=== PATIENT | male | born 1995 | race Hispanic/Latino ===

== ENCOUNTER 2024-01-10 07:40 | Emergency (ER) | payer SELFPAY ==
[2024-01-10] MEDS ORDERED: Acetaminophen 325 MG TAB ONE (08:12)
[2024-01-10 08:37] LABS: Hematocrit 28.5 % (42.0-52.0); Hemoglobin 8.7 g/dL (14.0-18.0); Mean Corpuscular HGB CONC 30.5 g/dL (32.0-36.0); Mean Corpuscular Hemoglobin 24.5 pg (27.0-31.0); Mean Corpuscular Volume 80.3 fL (78.0-98.0); Mean Platelet Volume 8.8 fL (7.4-10.4); Platelet Count 313 10x3/uL (130-400); RBC Distribution Width 18.8 % (11.5-14.5); Red Blood Cell (RBC) Count 3.55 mill/uL (4.70-6.10)
[2024-01-10 08:56] LABS: ALT (SGPT) 31 U/L (8-55); AST (SGOT) 52 U/L (5-34); Albumin 1.9 g/dL (3.5-5.0); Alkaline Phosphatase 363 U/L (40-110); Anion Gap 12 mmol/L (10-20); BUN (Urea Nitrogen) 9 mg/dL (8.9-20.6); Bilirubin, Total 0.3 mg/dL (0.2-1.2); Calc. Creatinine Clearance 0 mL/min (70-130); Calcium 8.5 mg/dL (7.8-10.44); Carbon Dioxide 21 mmol/L (22-29); Chloride 99 mmol/L (98-107); Estimated GFR 129; Globulin 7.9 g/dL (2.4-3.5); Glucose 86 mg/dL (70-105); Lipase 17 U/L (8-78); Potassium 3.6 mmol/L (3.5-5.1); Protein, Total 9.8 g/dL (6.0-8.3); Sodium 128 mmol/L (136-145)
[2024-01-10 09:19] LABS: Band 22 % (5-11); Eosinophils 1 % (0-10); Lymphocytes 29 % (21-51); Monocytes 11 % (0-10); Neutrophil 35 % (42-75); Platelet Adequacy Comment Platelets Normal; RBC Morphology Within Normal Limits; Reactive Lymphocytes 1 % (0-10)
== END 2024-01-10 12:12 | disposition home or self-care (01) ==
LOC: ERS 07:40
DX: K62.89 Other specified diseases of anus and rectum (principal); D64.9 Anemia, unspecified; K59.00 Constipation, unspecified; E87.1 Hypo-osmolality and hyponatremia
CPT/HCPCS: 36415; 74176; 80053; 83690; 85025

== ENCOUNTER 2024-08-07 07:50 | Inpatient (IN) | payer MEDICAID, SELFPAY ==
[2024-08-07] MEDS ORDERED: Ketorolac Tromethamine 30 MG (1 mL) VIAL ONE (08:15)
[2024-08-07 08:43] LABS: Hematocrit 23.2 % (42.0-52.0); Hemoglobin 6.9 g/dL (14.0-18.0); Mean Corpuscular HGB CONC 29.7 g/dL (32.0-36.0); Mean Corpuscular Hemoglobin 22.7 pg (27.0-31.0); Mean Corpuscular Volume 76.3 fL (78.0-98.0); Mean Platelet Volume 8.4 fL (7.4-10.4); Platelet Count 309 10x3/uL (130-400); RBC Distribution Width 18.6 % (11.5-14.5); Red Blood Cell (RBC) Count 3.04 mill/uL (4.70-6.10)
[2024-08-07 09:00] LABS: ALT (SGPT) 27 U/L (8-55); AST (SGOT) 54 U/L (5-34); Albumin 1.6 g/dL (3.5-5.0); Alkaline Phosphatase 890 U/L (40-110); Anion Gap 6 mmol/L (10-20); BUN (Urea Nitrogen) 8 mg/dL (8.9-20.6); Bilirubin, Total 0.4 mg/dL (0.2-1.2); Calc. Creatinine Clearance 0 mL/min (70-130); Calcium 7.5 mg/dL (7.8-10.44); Carbon Dioxide 22 mmol/L (22-29); Chloride 99 mmol/L (98-107); Estimated GFR 134; Globulin 7.5 g/dL (2.4-3.5); Glucose 81 mg/dL (70-105); Lipase 12 U/L (8-78); Potassium 3.6 mmol/L (3.5-5.1); Protein, Total 9.1 g/dL (6.0-8.3); Sodium 123 mmol/L (136-145)
[2024-08-07 09:08] LABS: Bacteria/HPF None Seen HPF (None Seen); Bilirubin Negative (Negative); Blood, Urine Negative (Negative); CAUTI Indications for Culture Pelvic or flank pain; Clarity Clear (Clear); Glucose, Urine (Dipstick) Normal (Negative); Ketone, Urine Negative (Negative); Leukocyte 25 Leu/uL (Negative); Nitrite Negative (Negative); Protein, Urine (Dipstick) 50 mg/dL (Neg-Trace); RBC/HPF 0-3 HPF (0-3); Specific Gravity, Urine 1.027 (1.002-1.036); Squamous Epithelial 0-3 HPF (0-3); pH, Urine 6.5 (5.0-9.0)
[2024-08-07 09:09] LABS: Urine Culture Reflex No No
[2024-08-07 09:45] LABS: #Basophils Less than 0.03 10x3/uL (0.0-0.2); #Eosinophils Less than 0.03 10x3/uL (0.0-0.7); %Basophils 0.2 % (0.0-1.0); %Eosinophils 0.1 % (0.0-10.0); %Lymphocytes 50.2 % (21.0-51.0); %Monocytes 7.9 % (0.0-10.0); Band 5 % (5-11); Hypochromia SLIGHT = 6-15 cells (100X) (0-5/hpf); Lymphocytes 57 % (21-51); Microcytosis SLIGHT = 6-15 cells (100X) (0-5/hpf); Monocytes 5 % (0-10); Neutrophil 33 % (42-75); Plasma Cells 0 % (0-0); Platelet Adequacy Comment Appears Adequate; Polychromasia SLIGHT = 2-3 cells (100X) (0-2/hpf); Smudge Cells SLIGHT; Total Cell Count 100
[2024-08-07] MEDS ORDERED: Ondansetron ODT 4 MG TAB PO PRN (11:53)
[2024-08-07 12:43] VITALS: BMI 17.3
[2024-08-07 12:43] LABS: Amphetamine Not Detected (NotDetected); Barbiturates Screen Not Detected (NotDetected); Benzodiazepine Screen Not Detected (NotDetected); Cocaine Metabolite Screen Not Detected (NotDetected); Methadone Not Detected (NotDetected); Methamphetamine Not Detected (NotDetected); Opiate Screen Not Detected (NotDetected); Oxycodone Screen Not Detected (NotDetected); Phencyclidine (PCP) Not Detected (NotDetected); THC/Cannabinoid Screen Not Detected (NotDetected); Tricyclic Screen Not Detected (NotDetected)
[2024-08-07 13:00] LABS: Cardiac Risk 3.5 (Less than 4.5)
[2024-08-07 13:48] LABS: Hemoglobin A1c 4.7 % (4.0-6.0)
[2024-08-07 14:53] LABS: Ferritin 870.23 ng/mL (22-322)
[2024-08-07 15:26] LABS: HIV (1/2) Antibody/Antigen Reflxed Confirmation (NonReactive)
[2024-08-07] MEDS: Ketorolac Tromethamine 30 MG (1 mL) VIAL IVP PRN (15:26)
[2024-08-07] MEDS ORDERED: Iopamidol-370 76% 500 ML MDV (1 ML CHARGE) ONE (15:41)
[2024-08-07 16:03] LABS: Hematocrit 22.4 % (42.0-52.0); Hemoglobin 6.9 g/dL (14.0-18.0)
[2024-08-07 16:28] LABS: Anion Gap 6 mmol/L (10-20); BUN (Urea Nitrogen) 8 mg/dL (8.9-20.6); Calc. Creatinine Clearance 140 mL/min (70-130); Calcium 7.1 mg/dL (7.8-10.44); Carbon Dioxide 19 mmol/L (22-29); Chloride 104 mmol/L (98-107); Estimated GFR 139; Glucose 104 mg/dL (70-105); Potassium 3.2 mmol/L (3.5-5.1); Sodium 126 mmol/L (136-145)
[2024-08-07 16:48] LABS: HBsAg Index 0.23 S/CO (0-0.99); HIV 1/2 INDEX 523.53 S/CO (<1.00); Hep A IgM AB NONREACTIVE (NonReactive); Hep A IgM S/CO 0.18 S/CO (0-0.79); Hep B Core IgM Index 0.09 S/CO (0-0.79); Hep B Surf Ag NONREACTIVE S/CO (NonReactive); Hep C IgG Ab NONREACTIVE S/CO (NonReactive); Hepatitis B Core IgM Abs NONREACTIVE S/CO (NonReactive); Thyroid Stimulating Hormone 1.8711 uIU/mL (0.35-4.94)
[2024-08-07] MEDS: GoLYTELY 4,000 ml Bottle PO SCH (17:51)
[2024-08-07] MEDS: Potassium Chloride 20 MEQ in Premix 1 BAG IVPB SCH (17:53)
[2024-08-07 23:53] LABS: Syphilis Antibody Index 23.76 S/CO (<1.00 Non-Reactive)
[2024-08-07 23:59] LABS: Syphilis Antibody REACTIVE (Nonreactive); Syphilis Titer 1:32 Titer (Nonreactive)
[2024-08-08 05:42] LABS: Hematocrit 20.8 % (42.0-52.0); Hemoglobin 6.4 g/dL (14.0-18.0); Mean Corpuscular HGB CONC 30.8 g/dL (32.0-36.0); Mean Corpuscular Hemoglobin 23.5 pg (27.0-31.0); Mean Corpuscular Volume 76.5 fL (78.0-98.0); Mean Platelet Volume 8.5 fL (7.4-10.4); Platelet Count 216 10x3/uL (130-400); RBC Distribution Width 18.7 % (11.5-14.5); Red Blood Cell (RBC) Count 2.72 mill/uL (4.70-6.10)
[2024-08-08 05:56] LABS: Calc. Creatinine Clearance 149 mL/min (70-130); Estimated GFR 142; Immunoglob - G (Total IgG) 3823 mg/dL (540-1822); Immunoglob - M (Total IgM) 297 mg/dL (22-240)
[2024-08-08 05:58] LABS: ALT (SGPT) 24 U/L (8-55); AST (SGOT) 47 U/L (5-34); Albumin 1.3 g/dL (3.5-5.0); Alkaline Phosphatase 824 U/L (40-110); Anion Gap 7 mmol/L (10-20); BUN (Urea Nitrogen) 6 mg/dL (8.9-20.6); Bilirubin, Total 0.4 mg/dL (0.2-1.2); Calcium 7.1 mg/dL (7.8-10.44); Carbon Dioxide 22 mmol/L (22-29); Chloride 105 mmol/L (98-107); Globulin 5.9 g/dL (2.4-3.5); Glucose 81 mg/dL (70-105); Potassium 3.6 mmol/L (3.5-5.1); Protein, Total 7.2 g/dL (6.0-8.3); Sodium 130 mmol/L (136-145)
[2024-08-08 06:13] LABS: Band 21 % (5-11); Hypochromia SLIGHT = 6-15 cells HPF (0-5); Large Platelets 7.4 % (0-5); Lymphocytes 6 % (21-51); Microcytosis SLIGHT = 6-15 cells HPF (0-5); Monocytes 12 % (0-10); Neutrophil 60 % (42-75); Platelet Adequacy Comment Platelets Normal; Polychromasia SLIGHT = 2-3 cells HPF (0-2); Reactive Lymphocytes 2 % (0-10)
[2024-08-08] MEDS ORDERED: fentaNYL 50 mcg/mL 1 mL Vial ONE (07:51)
[2024-08-08] MEDS ORDERED: Lidocaine 1% PF 5 ML VIAL ONE (08:31)
[2024-08-08] MEDS ORDERED: PROPOFOL 20 ML ONE ×3 (08:31→08:56)
[2024-08-08 08:58] VITALS: BMI 17.3
[2024-08-08 11:35] LABS: Calc. Creatinine Clearance 146 mL/min (70-130); Estimated GFR 141
[2024-08-08 11:36] LABS: Anion Gap 7 mmol/L (10-20); BUN (Urea Nitrogen) 5 mg/dL (8.9-20.6); Calcium 7.2 mg/dL (7.8-10.44); Carbon Dioxide 20 mmol/L (22-29); Chloride 106 mmol/L (98-107); Glucose 99 mg/dL (70-105); Potassium 3.3 mmol/L (3.5-5.1); Sodium 130 mmol/L (136-145)
[2024-08-08] MEDS: Fluconazole In NaCl,Iso-Osm 400 MG in Premix 1 BAG IVPB SCH (11:54)
[2024-08-08] MEDS: Bicillin LA 2.4 MILL.UNITS/4 ML SYRINGE IM SCH (11:57)
[2024-08-08] MEDS: Potassium Chloride 20 MEQ in Premix 1 BAG IVPB SCH (12:21)
[2024-08-08] MEDS: Potassium Chloride 20 MEQ TAB PO SCH (12:22)
[2024-08-08 18:36] LABS: Hematocrit 32.7 % (42.0-52.0); Hemoglobin 10.5 g/dL (14.0-18.0)
[2024-08-08] MEDS: Acetaminophen 325 MG TAB PO PRN (20:25)
[2024-08-08] MEDS: Simethicone Chewable 80 MG TAB PO SCH (22:17)
[2024-08-09 01:23] LABS: Chlam.trachomatis by PCR,Urine Not Detected (NotDetected); GC N.gonorrhoeae PCR,UrineVOID Not Detected (NotDetected)
[2024-08-09 04:57] LABS: Hematocrit 36.7 % (42.0-52.0); Hemoglobin 11.7 g/dL (14.0-18.0); Mean Corpuscular HGB CONC 31.9 g/dL (32.0-36.0); Mean Corpuscular Hemoglobin 25.2 pg (27.0-31.0); Mean Corpuscular Volume 79.1 fL (78.0-98.0); Mean Platelet Volume 8.5 fL (7.4-10.4); Platelet Count 241 10x3/uL (130-400); Red Blood Cell (RBC) Count 4.64 mill/uL (4.70-6.10)
[2024-08-09 05:06] LABS: ALT (SGPT) 24 U/L (8-55); AST (SGOT) 40 U/L (5-34); Albumin 1.4 g/dL (3.5-5.0); Alkaline Phosphatase 754 U/L (40-110); Anion Gap 5 mmol/L (10-20); BUN (Urea Nitrogen) 4 mg/dL (8.9-20.6); Bilirubin, Total 0.7 mg/dL (0.2-1.2); Calc. Creatinine Clearance 143 mL/min (70-130); Calcium 7.6 mg/dL (7.8-10.44); Carbon Dioxide 24 mmol/L (22-29); Chloride 101 mmol/L (98-107); Estimated GFR 140; Globulin 6.5 g/dL (2.4-3.5); Glucose 85 mg/dL (70-105); Potassium 4.3 mmol/L (3.5-5.1); Protein, Total 7.9 g/dL (6.0-8.3); Sodium 126 mmol/L (136-145)
[2024-08-09 06:17] LABS: Eosinophils 1 % (0-10); Lymphocytes 69 % (21-51); Monocytes 3 % (0-10); Neutrophil 21 % (42-75); Platelet Adequacy Comment Platelets Normal; Polychromasia SLIGHT = 2-3 cells HPF (0-2); Reactive Lymphocytes 6 % (0-10); Smudge Cells 2.6 %
[2024-08-09] MEDS: Fluconazole In NaCl,Iso-Osm 200 MG in Premix 1 BAG IVPB SCH (08:38)
[2024-08-09 11:49] LABS: ANA Symphony (Qualitative) Equivocal: See Note (Negative); ANA Symphony (Quantitative) 0.9 Ratio (< 0.7 Negative); EliA Vaculitis New Method **** NEW METHOD ****; dsDNA IgG Antibody 3.5 IU/mL (<10 Negative)
[2024-08-09] MEDS: Ketorolac Tromethamine 30 MG (1 mL) VIAL IVP SCH (15:29)
[2024-08-09 17:12] LABS: %CD4 (Helper/Inducer) 3.5 % (30.8-58.5); Absolute CD4 63 /uL (359-1519); Lymphocytes/Gated Cell Count 1.8 x10E3/uL (0.7-3.1); Total Lymphocyte 40 % (Not Estab.); WBC Total Count 4.6 x10E3/uL (3.4-10.8)
[2024-08-09] MEDS: FLU (Fluarix Triv) TS24-25(6MOS UP)/PF 45 MCG/0.5 ML Syringe IM ONE (22:06)
[2024-08-09] MEDS: Ibuprofen 600 MG TAB PO PRN (22:30)
[2024-08-09 23:36] LABS: Adenovirus F 40-41 Not Detected (Not Detected); Astrovirus Not Detected (Not Detected); C. difficile toxin A+B Not Detected (Not Detected); Campylobacter by PCR DETECTED (Not Detected); Cryptosporidium Not Detected (Not Detected); Cyclospora cayetanensis Not Detected (Not Detected); Entamoeba histolytica Not Detected (Not Detected); Enteroaggregative E. coli Not Detected (Not Detected); Enteropathogenic E. coli Not Detected (Not Detected); Enterotoxigenic E. coli Not Detected (Not Detected); Giardia lamblia Not Detected (Not Detected); Norovirus GI-GII Not Detected (Not Detected); Plesiomonas shigelloides Not Detected (Not Detected); Rotavirus A Not Detected (Not Detected); Salmonella Not Detected (Not Detected); Sapovirus Not Detected (Not Detected); Shiga-toxin-producing E coli Not Detected (Not Detected); Shigella/Enteroinvasive E coli DETECTED (Not Detected); Vibrio Not Detected (Not Detected); Vibrio cholerae Not Detected (Not Detected); Yersinia enterocolitica Not Detected (Not Detected)
[2024-08-10 04:47] LABS: Hematocrit 34.8 % (42.0-52.0); Hemoglobin 10.9 g/dL (14.0-18.0); Mean Corpuscular HGB CONC 31.3 g/dL (32.0-36.0); Mean Corpuscular Hemoglobin 24.9 pg (27.0-31.0); Mean Corpuscular Volume 79.6 fL (78.0-98.0); Mean Platelet Volume 8.9 fL (7.4-10.4); Platelet Count 198 10x3/uL (130-400); Red Blood Cell (RBC) Count 4.37 mill/uL (4.70-6.10)
[2024-08-10 05:30] LABS: ALT (SGPT) 57 U/L (8-55); AST (SGOT) 94 U/L (5-34); Albumin 1.4 g/dL (3.5-5.0); Alkaline Phosphatase 1274 U/L (40-110); Anion Gap 7 mmol/L (10-20); BUN (Urea Nitrogen) 7 mg/dL (8.9-20.6); Bilirubin, Total 0.6 mg/dL (0.2-1.2); Calc. Creatinine Clearance 130 mL/min (70-130); Calcium 7.6 mg/dL (7.8-10.44); Carbon Dioxide 24 mmol/L (22-29); Chloride 99 mmol/L (98-107); Estimated GFR 136; Globulin 6.6 g/dL (2.4-3.5); Glucose 87 mg/dL (70-105); Potassium 3.8 mmol/L (3.5-5.1); Sodium 126 mmol/L (136-145)
[2024-08-10 05:49] LABS: Band 8 % (5-11); Large Platelets 0.8 % (0-5); Lymphocytes 43 % (21-51); Monocytes 7 % (0-10); Neutrophil 29 % (42-75); Platelet Adequacy Comment Platelets Normal; Polychromasia SLIGHT = 2-3 cells HPF (0-2); Reactive Lymphocytes 13 % (0-10)
[2024-08-10] MEDS: Azithromycin 250 MG TAB PO SCH (09:30)
[2024-08-10] MEDS: Meropenem 1 GM in Sodium Chloride 0.9% 100 ML IVPB SCH ×2 (09:30→18:25)
[2024-08-10] MEDS: Fluconazole 100 MG TAB PO SCH (09:30)
[2024-08-10] MEDS: Sulfameth/Trimethoprim DS 800-160mg TAB PO SCH (09:30)
[2024-08-10 10:13] LABS: HIV 1 Antibody Multi-Spot Reactive (Non Reactive); HIV 2 Antibody Multi-Spot Indeterminate (Non Reactive); HIV Multi-spot Interp HIV-1 Positive (.)
[2024-08-10] MEDS: Emtricitabine/Tenofovir 200-300 MG TAB PO SCH (11:14)
[2024-08-10] MEDS: Raltegravir Potassium 400 MG TAB PO SCH ×2 (11:14→20:30)
[2024-08-11 05:00] LABS: ALT (SGPT) 60 U/L (8-55); AST (SGOT) 84 U/L (5-34); Albumin 1.4 g/dL (3.5-5.0); Alkaline Phosphatase 1131 U/L (40-110); Anion Gap 8 mmol/L (10-20); BUN (Urea Nitrogen) 9 mg/dL (8.9-20.6); Bilirubin, Total 0.4 mg/dL (0.2-1.2); Calc. Creatinine Clearance 140 mL/min (70-130); Calcium 7.7 mg/dL (7.8-10.44); Carbon Dioxide 21 mmol/L (22-29); Chloride 108 mmol/L (98-107); Estimated GFR 139; Globulin 6.5 g/dL (2.4-3.5); Glucose 77 mg/dL (70-105); Potassium 4.5 mmol/L (3.5-5.1); Protein, Total 7.9 g/dL (6.0-8.3); Sodium 132 mmol/L (136-145)
[2024-08-11 05:18] LABS: Hematocrit 34.9 % (42.0-52.0); Hemoglobin 10.8 g/dL (14.0-18.0); Mean Corpuscular HGB CONC 30.9 g/dL (32.0-36.0); Mean Corpuscular Hemoglobin 25.1 pg (27.0-31.0); Mean Corpuscular Volume 81.2 fL (78.0-98.0); Mean Platelet Volume 8.6 fL (7.4-10.4); Platelet Count 178 10x3/uL (130-400); RBC Distribution Width 18.5 % (11.5-14.5)
[2024-08-11 06:05] LABS: Anisocytosis SLIGHT = 6-15 cells HPF (0-5); Band 10 % (5-11); Burr Cells SLIGHT = 2-5 cells HPF (0-1); Large Platelets 2.2 % (0-5); Lymphocytes 7 % (21-51); Macrocytosis SLIGHT = 6-15 cells HPF (0-5); Metamyelocyte 3 % (0-0); Monocytes 8 % (0-10); Neutrophil 72 % (42-75); Platelet Adequacy Comment Platelets Normal; Polychromasia MODERATE = 3-4 cells HPF (0-2); Smudge Cells 83.1 %
[2024-08-11] MEDS: Emtricitabine/Tenofovir 200-300 MG TAB PO SCH (09:22)
[2024-08-12 06:05] LABS: Hematocrit 34.9 % (42.0-52.0); Hemoglobin 10.9 g/dL (14.0-18.0); Mean Corpuscular HGB CONC 31.2 g/dL (32.0-36.0); Mean Corpuscular Hemoglobin 25.3 pg (27.0-31.0); Mean Platelet Volume 8.6 fL (7.4-10.4); Platelet Count 203 10x3/uL (130-400); RBC Distribution Width 18.5 % (11.5-14.5); Red Blood Cell (RBC) Count 4.31 mill/uL (4.70-6.10)
[2024-08-12 06:25] LABS: ALT (SGPT) 74 U/L (8-55); AST (SGOT) 96 U/L (5-34); Albumin 1.5 g/dL (3.5-5.0); Alkaline Phosphatase 1335 U/L (40-110); Anion Gap 9 mmol/L (10-20); BUN (Urea Nitrogen) 7 mg/dL (8.9-20.6); Bilirubin, Total 0.3 mg/dL (0.2-1.2); Calc. Creatinine Clearance 123 mL/min (70-130); Calcium 7.8 mg/dL (7.8-10.44); Carbon Dioxide 22 mmol/L (22-29); Chloride 103 mmol/L (98-107); Estimated GFR 134; Globulin 6.9 g/dL (2.4-3.5); Glucose 85 mg/dL (70-105); Potassium 4.5 mmol/L (3.5-5.1); Protein, Total 8.4 g/dL (6.0-8.3); Sodium 129 mmol/L (136-145)
[2024-08-12 06:39] LABS: Large Platelets 2.6 % (0-5); Lymphocytes 69 % (21-51); Monocytes 4 % (0-10); Neutrophil 19 % (42-75); Platelet Adequacy Comment Platelets Normal; Polychromasia SLIGHT = 2-3 cells HPF (0-2); Reactive Lymphocytes 8 % (0-10); Smudge Cells 3.4 %
[2024-08-12] MEDS: Sodium Chloride 0.9% 1,000 ML IV SCH (10:40)
[2024-08-13 06:04] LABS: Hematocrit 36.7 % (42.0-52.0); Hemoglobin 11.3 g/dL (14.0-18.0); Mean Corpuscular HGB CONC 30.8 g/dL (32.0-36.0); Mean Corpuscular Hemoglobin 25.2 pg (27.0-31.0); Mean Corpuscular Volume 81.7 fL (78.0-98.0); Mean Platelet Volume 8.9 fL (7.4-10.4); Platelet Count 235 10x3/uL (130-400); RBC Distribution Width 18.8 % (11.5-14.5); Red Blood Cell (RBC) Count 4.49 mill/uL (4.70-6.10)
[2024-08-13 06:18] LABS: ALT (SGPT) 89 U/L (8-55); AST (SGOT) 110 U/L (5-34); Albumin 1.7 g/dL (3.5-5.0); Alkaline Phosphatase 1381 U/L (40-110); Anion Gap 8 mmol/L (10-20); BUN (Urea Nitrogen) 9 mg/dL (8.9-20.6); Bilirubin, Total 0.3 mg/dL (0.2-1.2); Calc. Creatinine Clearance 125 mL/min (70-130); Calcium 8.3 mg/dL (7.8-10.44); Carbon Dioxide 21 mmol/L (22-29); Chloride 106 mmol/L (98-107); Estimated GFR 134; Globulin 7.4 g/dL (2.4-3.5); Glucose 80 mg/dL (70-105); Potassium 4.9 mmol/L (3.5-5.1); Protein, Total 9.1 g/dL (6.0-8.3); Sodium 130 mmol/L (136-145)
[2024-08-13 08:00] LABS: Anisocytosis SLIGHT = 6-15 cells HPF (0-5); Large Platelets 12.8 % (0-5); Lymphocytes 26 % (21-51); Monocytes 15 % (0-10); Neutrophil 52 % (42-75); Platelet Adequacy Comment Platelets Normal; Reactive Lymphocytes 8 % (0-10); Reflex for Review?? YES; Schistocytes SLIGHT = 2-5 cells HPF (0-1); Smudge Cells 144.7 %; Toxic Granulation SLIGHT
[2024-08-13] MEDS: Sodium Chloride 0.9% 1,000 ML IV SCH (14:45)
[2024-08-14 04:08] LABS: QuantiFERON-TB Gold Plus Negative (Negative)
[2024-08-14 06:13] LABS: #Basophils 0.03 10x3/uL (0.0-0.2); %Basophils 0.5 % (0.0-1.0); %Eosinophils 0.8 % (0.0-10.0); %Neutrophils 29.4 % (42.0-75.0); Hematocrit 33.7 % (42.0-52.0); Hemoglobin 10.2 g/dL (14.0-18.0); Mean Corpuscular HGB CONC 30.3 g/dL (32.0-36.0); Mean Corpuscular Hemoglobin 24.7 pg (27.0-31.0); Mean Corpuscular Volume 81.6 fL (78.0-98.0); Mean Platelet Volume 8.8 fL (7.4-10.4); Platelet Count 234 10x3/uL (130-400); RBC Distribution Width 18.9 % (11.5-14.5); Red Blood Cell (RBC) Count 4.13 mill/uL (4.70-6.10)
[2024-08-14 06:40] LABS: ALT (SGPT) 82 U/L (8-55); AST (SGOT) 91 U/L (5-34); Albumin 1.7 g/dL (3.5-5.0); Alkaline Phosphatase 1158 U/L (40-110); Anion Gap 7 mmol/L (10-20); BUN (Urea Nitrogen) 13 mg/dL (8.9-20.6); Bilirubin, Total 0.3 mg/dL (0.2-1.2); Calc. Creatinine Clearance 107 mL/min (70-130); Calcium 8.3 mg/dL (7.8-10.44); Carbon Dioxide 24 mmol/L (22-29); Chloride 104 mmol/L (98-107); Estimated GFR 128; Globulin 7.1 g/dL (2.4-3.5); Glucose 71 mg/dL (70-105); Potassium 5.2 mmol/L (3.5-5.1); Protein, Total 8.8 g/dL (6.0-8.3); Sodium 130 mmol/L (136-145)
[2024-08-14 14:14] LABS: LOG10 HIV-1 RNA 5.27 (.)
[2024-08-14] MEDS: Bicillin LA 2.4 MILL.UNITS/4 ML SYRINGE IM SCH (16:17)
[2024-08-14] MEDS: GANCICLOVIR SODIUM IVPB SCH (17:07)
[2024-08-14] MEDS: SODIUM CHLORIDE 0.9% IVPB SCH (17:07)
[2024-08-14 18:48] LABS: Potassium 5.1 mmol/L (3.5-5.1); Sodium 131 mmol/L (136-145)
[2024-08-14] MEDS ORDERED: [UNRECOGNIZED DRUG - OTHER] IVPB SCH (21:00)
[2024-08-14] MEDS: Pantoprazole 40 MG DR.TAB PO SCH (21:04)
[2024-08-15 06:18] LABS: ALT (SGPT) 78 U/L (8-55); AST (SGOT) 80 U/L (5-34); Albumin 1.7 g/dL (3.5-5.0); Alkaline Phosphatase 938 U/L (40-110); Anion Gap 7 mmol/L (10-20); BUN (Urea Nitrogen) 15 mg/dL (8.9-20.6); Bilirubin, Total 0.2 mg/dL (0.2-1.2); Calc. Creatinine Clearance 130 mL/min (70-130); Carbon Dioxide 22 mmol/L (22-29); Chloride 105 mmol/L (98-107); Estimated GFR 136; Globulin 6.5 g/dL (2.4-3.5); Glucose 77 mg/dL (70-105); Protein, Total 8.2 g/dL (6.0-8.3); Sodium 129 mmol/L (136-145)
[2024-08-15 06:33] LABS: Hematocrit 28.2 % (42.0-52.0); Hemoglobin 8.5 g/dL (14.0-18.0); Mean Corpuscular HGB CONC 30.1 g/dL (32.0-36.0); Mean Corpuscular Volume 82.9 fL (78.0-98.0); Mean Platelet Volume 9.2 fL (7.4-10.4); Platelet Count 211 10x3/uL (130-400); RBC Distribution Width 18.8 % (11.5-14.5)
[2024-08-15 07:22] LABS: Anisocytosis SLIGHT = 6-15 cells HPF (0-5); Band 5 % (5-11); Large Platelets 8.2 % (0-5); Lymphocytes 54 % (21-51); Macrocytosis SLIGHT = 6-15 cells HPF (0-5); Monocytes 10 % (0-10); Neutrophil 26 % (42-75); Platelet Adequacy Comment Platelets Normal; Polychromasia SLIGHT = 2-3 cells HPF (0-2); Reactive Lymphocytes 5 % (0-10); Smudge Cells 121.6 %
[2024-08-15] MEDS ORDERED: Pantoprazole 40 MG DR.TAB PO SCH (09:00)
[2024-08-15] MEDS: Lidocaine 2% Viscous Solution 10 ML, Aluminum & Magnesium Hydroxide 30 ML SSW ONE (14:21)
[2024-08-15] MEDS: Ergocalciferol 1.25 MG(50,000 UNITS) CAP PO SCH (15:07)
[2024-08-15] MEDS: Lidocaine 10 ML, Aluminum & Magnesium Hydroxide 30 ML SSW SCH (15:07)
[2024-08-16 05:54] LABS: Hematocrit 29.6 % (42.0-52.0); Hemoglobin 9.1 g/dL (14.0-18.0); Mean Corpuscular HGB CONC 30.7 g/dL (32.0-36.0); Mean Corpuscular Hemoglobin 25.3 pg (27.0-31.0); Mean Corpuscular Volume 82.2 fL (78.0-98.0); Mean Platelet Volume 8.8 fL (7.4-10.4); Platelet Count 200 10x3/uL (130-400)
[2024-08-16 06:03] LABS: ALT (SGPT) 77 U/L (8-55); AST (SGOT) 77 U/L (5-34); Albumin 1.8 g/dL (3.5-5.0); Alkaline Phosphatase 825 U/L (40-110); Anion Gap 7 mmol/L (10-20); BUN (Urea Nitrogen) 14 mg/dL (8.9-20.6); Bilirubin, Total 0.2 mg/dL (0.2-1.2); Calc. Creatinine Clearance 112 mL/min (70-130); Calcium 8.2 mg/dL (7.8-10.44); Carbon Dioxide 26 mmol/L (22-29); Chloride 103 mmol/L (98-107); Estimated GFR 130; Globulin 6.6 g/dL (2.4-3.5); Glucose 76 mg/dL (70-105); Potassium 4.8 mmol/L (3.5-5.1); Protein, Total 8.4 g/dL (6.0-8.3); Sodium 131 mmol/L (136-145)
[2024-08-16 06:31] LABS: Anisocytosis SLIGHT = 6-15 cells HPF (0-5); Band 3 % (5-11); Eosinophils 1 % (0-10); Hypochromia SLIGHT = 6-15 cells HPF (0-5); Large Platelets 5.1 % (0-5); Lymphocytes 43 % (21-51); Monocytes 8 % (0-10); Neutrophil 34 % (42-75); Platelet Adequacy Comment Platelets Normal; Polychromasia MODERATE = 3-4 cells HPF (0-2); Reactive Lymphocytes 10 % (0-10); Smudge Cells 39.8 %
[2024-08-16] MEDS: Ferrous Sulfate 325 MG TAB PO SCH (08:50)
[2024-08-16] MEDS: Acetaminophen 325 MG TAB PO SCH (11:19)
[2024-08-16] MEDS: Ketorolac Tromethamine 30 MG (1 mL) VIAL IVP SCH (11:20)
[2024-08-17 05:35] LABS: Hematocrit 28.7 % (42.0-52.0); Hemoglobin 8.8 g/dL (14.0-18.0); Mean Corpuscular HGB CONC 30.7 g/dL (32.0-36.0); Mean Corpuscular Hemoglobin 25.3 pg (27.0-31.0); Mean Corpuscular Volume 82.5 fL (78.0-98.0); Mean Platelet Volume 8.9 fL (7.4-10.4); Platelet Count 226 10x3/uL (130-400); RBC Distribution Width 19.1 % (11.5-14.5); Red Blood Cell (RBC) Count 3.48 mill/uL (4.70-6.10)
[2024-08-17 05:47] LABS: ALT (SGPT) 74 U/L (8-55); AST (SGOT) 70 U/L (5-34); Albumin 1.9 g/dL (3.5-5.0); Alkaline Phosphatase 690 U/L (40-110); Anion Gap 7 mmol/L (10-20); BUN (Urea Nitrogen) 12 mg/dL (8.9-20.6); Bilirubin, Total 0.3 mg/dL (0.2-1.2); Calc. Creatinine Clearance 123 mL/min (70-130); Calcium 8.2 mg/dL (7.8-10.44); Carbon Dioxide 25 mmol/L (22-29); Chloride 102 mmol/L (98-107); Estimated GFR 134; Globulin 6.9 g/dL (2.4-3.5); Glucose 82 mg/dL (70-105); Potassium 4.2 mmol/L (3.5-5.1); Protein, Total 8.8 g/dL (6.0-8.3); Sodium 130 mmol/L (136-145)
[2024-08-17 06:10] LABS: Anisocytosis SLIGHT = 6-15 cells HPF (0-5); Band 10 % (5-11); Eosinophils 1 % (0-10); Hypochromia SLIGHT = 6-15 cells HPF (0-5); Lymphocytes 42 % (21-51); Metamyelocyte 1 % (0-0); Monocytes 7 % (0-10); Neutrophil 36 % (42-75); Platelet Adequacy Comment Platelets Normal; Poikilocytosis MODERATE=16-30 cells HPF (0-5); Polychromasia SLIGHT = 2-3 cells HPF (0-2); Reactive Lymphocytes 2 % (0-10); Smudge Cells 28.3 %
[2024-08-17] MEDS: HYDROcodone/Acetaminophen 5/325 mg Tablet PO PRN (12:28)
[2024-08-18 05:23] LABS: Hematocrit 30.7 % (42.0-52.0); Hemoglobin 9.2 g/dL (14.0-18.0); Mean Corpuscular Volume 83.4 fL (78.0-98.0); Platelet Count 248 10x3/uL (130-400); RBC Distribution Width 19.4 % (11.5-14.5); Red Blood Cell (RBC) Count 3.68 mill/uL (4.70-6.10)
[2024-08-18 05:25] LABS: ALT (SGPT) 72 U/L (8-55); AST (SGOT) 69 U/L (5-34); Alkaline Phosphatase 657 U/L (40-110); Anion Gap 7 mmol/L (10-20); BUN (Urea Nitrogen) 11 mg/dL (8.9-20.6); Bilirubin, Total 0.2 mg/dL (0.2-1.2); Calc. Creatinine Clearance 112 mL/min (70-130); Calcium 8.5 mg/dL (7.8-10.44); Carbon Dioxide 27 mmol/L (22-29); Chloride 101 mmol/L (98-107); Estimated GFR 130; Globulin 7.4 g/dL (2.4-3.5); Glucose 80 mg/dL (70-105); Potassium 4.8 mmol/L (3.5-5.1); Protein, Total 9.4 g/dL (6.0-8.3); Sodium 130 mmol/L (136-145)
[2024-08-18 05:48] LABS: Band 2 % (5-11); Eosinophils 3 % (0-10); Hypochromia SLIGHT = 6-15 cells HPF (0-5); Lymphocytes 61 % (21-51); Monocytes 9 % (0-10); Neutrophil 25 % (42-75); Platelet Adequacy Comment Platelets Normal; Polychromasia SLIGHT = 2-3 cells HPF (0-2)
[2024-08-19 05:36] LABS: Hematocrit 28.3 % (42.0-52.0); Hemoglobin 8.7 g/dL (14.0-18.0); Mean Corpuscular HGB CONC 30.7 g/dL (32.0-36.0); Mean Corpuscular Hemoglobin 25.5 pg (27.0-31.0); Mean Platelet Volume 8.7 fL (7.4-10.4); Platelet Count 232 10x3/uL (130-400); RBC Distribution Width 19.6 % (11.5-14.5); Red Blood Cell (RBC) Count 3.41 mill/uL (4.70-6.10)
[2024-08-19 05:44] LABS: ALT (SGPT) 68 U/L (8-55); AST (SGOT) 67 U/L (5-34); Alkaline Phosphatase 578 U/L (40-110); Anion Gap 7 mmol/L (10-20); BUN (Urea Nitrogen) 12 mg/dL (8.9-20.6); Bilirubin, Total 0.3 mg/dL (0.2-1.2); Calc. Creatinine Clearance 113 mL/min (70-130); Calcium 8.3 mg/dL (7.8-10.44); Carbon Dioxide 26 mmol/L (22-29); Chloride 98 mmol/L (98-107); Estimated GFR 130; Globulin 7.1 g/dL (2.4-3.5); Glucose 91 mg/dL (70-105); Potassium 4.2 mmol/L (3.5-5.1); Protein, Total 9.1 g/dL (6.0-8.3); Sodium 127 mmol/L (136-145)
[2024-08-19 06:08] LABS: Band 9 % (5-11); Eosinophils 2 % (0-10); Hypochromia SLIGHT = 6-15 cells HPF (0-5); Large Platelets 5.1 % (0-5); Lymphocytes 54 % (21-51); Monocytes 8 % (0-10); Neutrophil 25 % (42-75); Platelet Adequacy Comment Platelets Normal; Polychromasia SLIGHT = 2-3 cells HPF (0-2); Reactive Lymphocytes 2 % (0-10); Smudge Cells 36.7 %
[2024-08-19] MEDS: hydrOXYzine 25 MG TAB PO SCH (11:22)
[2024-08-19] MEDS: Sodium Chloride 0.9% 1,000 ML IV ONE (11:22)
[2024-08-19] MEDS: Loperamide HCl 2 MG CAP PO SCH (14:06)
[2024-08-19 16:33] LABS: Anion Gap 9 mmol/L (10-20); BUN (Urea Nitrogen) 14 mg/dL (8.9-20.6); Calc. Creatinine Clearance 117 mL/min (70-130); Calcium 8.3 mg/dL (7.8-10.44); Carbon Dioxide 24 mmol/L (22-29); Chloride 103 mmol/L (98-107); Estimated GFR 132; Glucose 113 mg/dL (70-105); Potassium 4.8 mmol/L (3.5-5.1); Sodium 131 mmol/L (136-145)
[2024-08-20 05:45] LABS: Hematocrit 27.1 % (42.0-52.0); Hemoglobin 8.4 g/dL (14.0-18.0); Mean Corpuscular Hemoglobin 25.6 pg (27.0-31.0); Mean Corpuscular Volume 82.6 fL (78.0-98.0); Mean Platelet Volume 8.8 fL (7.4-10.4); Platelet Count 251 10x3/uL (130-400); RBC Distribution Width 19.5 % (11.5-14.5); Red Blood Cell (RBC) Count 3.28 mill/uL (4.70-6.10)
[2024-08-20 05:58] LABS: ALT (SGPT) 77 U/L (8-55); AST (SGOT) 76 U/L (5-34); Alkaline Phosphatase 572 U/L (40-110); Anion Gap 7 mmol/L (10-20); BUN (Urea Nitrogen) 14 mg/dL (8.9-20.6); Bilirubin, Total 0.3 mg/dL (0.2-1.2); Calc. Creatinine Clearance 108 mL/min (70-130); Calcium 8.4 mg/dL (7.8-10.44); Carbon Dioxide 28 mmol/L (22-29); Chloride 98 mmol/L (98-107); Estimated GFR 129; Globulin 7.2 g/dL (2.4-3.5); Glucose 88 mg/dL (70-105); Potassium 4.6 mmol/L (3.5-5.1); Protein, Total 9.2 g/dL (6.0-8.3); Sodium 128 mmol/L (136-145)
[2024-08-20 06:11] LABS: Band 2 % (5-11); Eosinophils 2 % (0-10); Hypochromia SLIGHT = 6-15 cells (100X) (0-5/hpf); Lymphocytes 52 % (21-51); Monocytes 3 % (0-10); Neutrophil 24 % (42-75); Plasma Cells 0 % (0-0); Platelet Adequacy Comment Appears Adequate; Reactive Lymphocytes 16 % (0-10); Total Cell Count 100
[2024-08-20] MEDS: Loperamide HCl 2 MG CAP PO SCH (08:22)
[2024-08-20] MEDS ORDERED: Loperamide HCl 2 MG CAP PO SCH (09:00)
[2024-08-20] MEDS: Loperamide HCl 2 MG CAP PO PRN (13:16)
[2024-08-21 05:32] LABS: Hematocrit 27.1 % (42.0-52.0); Hemoglobin 8.4 g/dL (14.0-18.0); Mean Corpuscular Hemoglobin 26.1 pg (27.0-31.0); Mean Corpuscular Volume 84.2 fL (78.0-98.0); Mean Platelet Volume 8.6 fL (7.4-10.4); Platelet Count 252 10x3/uL (130-400); RBC Distribution Width 19.7 % (11.5-14.5); Red Blood Cell (RBC) Count 3.22 mill/uL (4.70-6.10)
[2024-08-21 05:48] LABS: ALT (SGPT) 72 U/L (Less than 45); AST (SGOT) 93 U/L (11-34); Albumin 2.1 g/dL (3.1-4.5); Alkaline Phosphatase 554 U/L (40-110); Anion Gap 9 mmol/L (10-20); BUN (Urea Nitrogen) 15 mg/dL (8.9-20.6); Bilirubin, Total 0.2 mg/dL (0.3-1.2); Calc. Creatinine Clearance 101 mL/min (70-130); Calcium 8.6 mg/dL (7.8-10.44); Carbon Dioxide 27 mmol/L (22-29); Chloride 104 mmol/L (98-107); Estimated GFR 126; Globulin 6.8 g/dL (2.4-3.5); Glucose 70 mg/dL (70-105); Potassium 4.6 mmol/L (3.5-5.1); Protein, Total 8.9 g/dL (6.0-8.3); Sodium 135 mmol/L (136-145)
[2024-08-21 05:54] LABS: Eosinophils 1 % (0-10); Hypochromia SLIGHT = 6-15 cells (100X) (0-5/hpf); Lymphocytes 67 % (21-51); Monocytes 8 % (0-10); Neutrophil 11 % (42-75); Plasma Cells 0 % (0-0); Platelet Adequacy Comment Appears Adequate; Reactive Lymphocytes 13 % (0-10); Total Cell Count 100
[2024-08-21] MEDS: HYDROcodone/Acetaminophen 7.5/325 mg Tablet PO PRN (20:33)
[2024-08-22 00:36] LABS: Alkaline Phosphastase Total 1358 IU/L (44-121); Bone 26 % (12-68); Intestinal 1 % (0-18); Liver 73 % (13-88)
[2024-08-22 06:35] LABS: Hematocrit 24.9 % (42.0-52.0); Hemoglobin 7.7 g/dL (14.0-18.0); Mean Corpuscular HGB CONC 30.9 g/dL (32.0-36.0); Mean Corpuscular Hemoglobin 25.8 pg (27.0-31.0); Mean Corpuscular Volume 83.6 fL (78.0-98.0); Mean Platelet Volume 8.7 fL (7.4-10.4); Platelet Count 259 10x3/uL (130-400); RBC Distribution Width 19.5 % (11.5-14.5); Red Blood Cell (RBC) Count 2.98 mill/uL (4.70-6.10)
[2024-08-22 06:49] LABS: ALT (SGPT) 68 U/L (Less than 45); AST (SGOT) 85 U/L (11-34); Alkaline Phosphatase 516 U/L (40-110); Anion Gap 7 mmol/L (10-20); BUN (Urea Nitrogen) 16 mg/dL (8.9-20.6); Bilirubin, Total 0.2 mg/dL (0.3-1.2); Calc. Creatinine Clearance 101 mL/min (70-130); Calcium 8.3 mg/dL (7.8-10.44); Carbon Dioxide 28 mmol/L (22-29); Chloride 101 mmol/L (98-107); Estimated GFR 126; Globulin 6.4 g/dL (2.4-3.5); Glucose 98 mg/dL (70-105); Potassium 4.3 mmol/L (3.5-5.1); Protein, Total 8.4 g/dL (6.0-8.3); Sodium 132 mmol/L (136-145)
[2024-08-22 06:54] LABS: Band 3 % (5-11); Eosinophils 2 % (0-10); Hypochromia SLIGHT = 6-15 cells (100X) (0-5/hpf); Lymphocytes 59 % (21-51); Monocytes 1 % (0-10); Neutrophil 33 % (42-75); Plasma Cells 0 % (0-0); Platelet Adequacy Comment Appears Adequate; Reactive Lymphocytes 2 % (0-10); Total Cell Count 100
[2024-08-22] MEDS: Loperamide HCl 2 MG CAP PO SCH (09:18)
[2024-08-22] MEDS: hydrOXYzine 25 MG TAB PO SCH (12:27)
[2024-08-22] MEDS: Saccharomyces boulardii 250 MG CAP PO SCH (12:28)
[2024-08-22] MEDS: Bicillin LA 2.4 MILL.UNITS/4 ML SYRINGE IM SCH (12:29)
[2024-08-22] MEDS: hydrOXYzine 25 MG TAB PO PRN (19:53)
[2024-08-23 06:33] LABS: Hematocrit 24.2 % (42.0-52.0); Hemoglobin 7.7 g/dL (14.0-18.0); Mean Corpuscular HGB CONC 31.8 g/dL (32.0-36.0); Mean Corpuscular Hemoglobin 26.1 pg (27.0-31.0); Mean Platelet Volume 8.6 fL (7.4-10.4); Platelet Count 248 10x3/uL (130-400); RBC Distribution Width 19.6 % (11.5-14.5); Red Blood Cell (RBC) Count 2.95 mill/uL (4.70-6.10)
[2024-08-23 07:05] LABS: Anisocytosis SLIGHT = 6-15 cells HPF (0-5); Band 4 % (5-11); Eosinophils 1 % (0-10); Lymphocytes 56 % (21-51); Metamyelocyte 1 % (0-0); Microcytosis SLIGHT = 6-15 cells HPF (0-5); Monocytes 2 % (0-10); Neutrophil 36 % (42-75); Platelet Adequacy Comment Platelets Normal; Polychromasia SLIGHT = 2-3 cells HPF (0-2); Smudge Cells 67.3 %
[2024-08-23] MEDS: Saccharomyces boulardii 250 MG CAP PO SCH (08:06)
[2024-08-23 08:34] LABS: ALT (SGPT) 68 U/L (Less than 45); AST (SGOT) 86 U/L (11-34); Anion Gap 9 mmol/L (10-20); BUN (Urea Nitrogen) 14 mg/dL (8.9-20.6); Bilirubin, Total 0.2 mg/dL (0.3-1.2); Calc. Creatinine Clearance 114 mL/min (70-130); Calcium 8.4 mg/dL (7.8-10.44); Carbon Dioxide 25 mmol/L (22-29); Chloride 100 mmol/L (98-107); Estimated GFR 127; Globulin 6.2 g/dL (2.4-3.5); Glucose 91 mg/dL (70-105); Potassium 4.2 mmol/L (3.5-5.1); Protein, Total 8.2 g/dL (6.0-8.3); Sodium 130 mmol/L (136-145)
[2024-08-23 08:56] LABS: Alkaline Phosphatase 491 U/L (40-110)
[2024-08-23] MEDS: Pepto Bismol Chew TAB PO SCH (14:38)
[2024-08-23] MEDS: Loperamide HCl 2 MG CAP PO SCH (14:40)
[2024-08-23 15:47] VITALS: BP 122/78; TEMP 98.9
== END 2024-08-23 15:35 | disposition home or self-care (01) | DRG 975 ==
LOC: ERS 07:50 → T4-B 12:28
PROVIDERS: ADMIT Internal Medicine; ATTEND Internal Medicine
PROC: 30233N1 Transfusion of Nonautologous Red Blood Cells into Peripheral Vein, Percutaneous Approach (ICD-10-PCS; principal; 2024-08-07)
PROC: 0DB98ZX Excision of Duodenum, Via Natural or Artificial Opening Endoscopic, Diagnostic (ICD-10-PCS; 2024-08-07)
PROC: 0DB78ZX Excision of Stomach, Pylorus, Via Natural or Artificial Opening Endoscopic, Diagnostic (ICD-10-PCS; 2024-08-07)
PROC: 0DB38ZX Excision of Lower Esophagus, Via Natural or Artificial Opening Endoscopic, Diagnostic (ICD-10-PCS; 2024-08-07)
PROC: 0DBM8ZX Excision of Descending Colon, Via Natural or Artificial Opening Endoscopic, Diagnostic (ICD-10-PCS; 2024-08-07)
PROC: 0DBP8ZX Excision of Rectum, Via Natural or Artificial Opening Endoscopic, Diagnostic (ICD-10-PCS; 2024-08-07)
DX: B20 Human immunodeficiency virus [HIV] disease (principal); A04.8 Other specified bacterial intestinal infections; B25.8 Other cytomegaloviral diseases; A08.39 Other viral enteritis; E87.1 Hypo-osmolality and hyponatremia; Z68.1 Body mass index [BMI] 19.9 or less, adult; E44.0 Moderate protein-calorie malnutrition; K63.3 Ulcer of intestine; A53.9 Syphilis, unspecified; R53.81 Other malaise; R63.4 Abnormal weight loss; D50.9 Iron deficiency anemia, unspecified; E88.09 Other disorders of plasma-protein metabolism, not elsewhere classified; F15.19 Other stimulant abuse with unspecified stimulant-induced disorder; R01.1 Cardiac murmur, unspecified; R74.01 Elevation of levels of liver transaminase levels; M54.50 Low back pain, unspecified; D72.825 Bandemia; K62.89 Other specified diseases of anus and rectum; C46.4 Kaposi's sarcoma of gastrointestinal sites; B37.81 Candidal esophagitis; A03.8 Other shigellosis; D63.8 Anemia in other chronic diseases classified elsewhere; E87.5 Hyperkalemia; L29.9 Pruritus, unspecified
CPT/HCPCS: 36415; 36430; 71046; 72070; 72100; 74177; 80053; 80061; 80074; 80306; 81001; 82306; 82533; 82728; 82977; 83036; 83516; 83540; 83550; 83690; 83930; 83935; 84075; 84300; 84443; 85025; 85060; 86015; 86038; 86225; 86361; 86480; 86593; 86701; 86702; 86780; 86850; 86900; 86901; 87040; 87324; 87389; 87449; 87491; 87507; 87536; 87591; 88305; 88341; 88342; 93306; 96374; J0561; J1450; J1570; J1885; J2185; J2704; J3010; J3480; J7030; P9016; Q9967